=== PATIENT | male | born 1985 | race Caucasian/White ===

== ENCOUNTER 2016-05-27 19:14 | Emergency (ER) | payer OTHER ==
[2016-05-27 19:20] VITALS: RESP 16
[2016-05-27] MEDS ORDERED: RX INFO: IV CONTRAST WAS GIVEN 1 EACH MISC MISCELLANE PRN (19:25)
--- NOTE | 2016-05-27 19:30 | ED ---
General Adult HPI - General Chief complaint: Neuro Symptoms/Deficit Stated complaint: CVA Symptoms Time Seen by Provider: 05/27/16 19:17 Source: patient, EMS, RN notes reviewed Mode of arrival: EMS Limitations: no limitations - History of Present Illness Initial comments: Patient is a pleasant 31-year-old male presenting to the emergency department with weakness. Onset of symptoms was 6:30. Patient was taking out the trash. Patient did fall. Patient denies any injury. Patient was unable to get up because he was weak. Patient did have a stroke around 6 years ago with similar problems. Patient does not have persistent deficits from that. Patient does not feel confused. No visual changes. No speech problems. Patient states his weakness is on the left side. Patient is on Coumadin and last had his level checked a couple weeks ago. Patient believes his levels may be slightly high. Patient does have a history of mitral valve disease and has had 2 surgeries when he was younger. This is why patient is on Coumadin. Patient states he may have a minimal headache however is not concerned regarding a. No neck or back pain. - Related Data Home Medications Medication Instructions Recorded Confirmed Warfarin [Coumadin] 5 mg PO SUTUWETHSA 05/27/16 05/27/16 Warfarin [Coumadin] 7.5 mg PO MOFR 05/27/16 05/27/16 Allergies Allergy/AdvReac Type Severity Reaction Status Date / Time No Known Allergies Allergy Verified 05/27/16 19:57 Review of Systems ROS Statement: Those systems with pertinent positive or pertinent negative responses have been documented in the HPI. ROS Other: All systems not noted in ROS Statement are negative. Constitutional: Denies: fever Eyes: Denies: eye pain ENT: Denies: ear pain Respiratory: Denies: cough, dyspnea Cardiovascular: Denies: chest pain Endocrine: Denies: fatigue Gastrointestinal: Denies: abdominal pain Genitourinary: Denies: dysuria Musculoskeletal: Denies: back pain Skin: Denies: rash Neurological: Reports: weakness, abnormal gait. Denies: headache, numbness, paresthesias, confusion General Exam Limitations: physical limitation General appearance: alert, in no apparent distress Head exam: Present: atraumatic, normocephalic Eye exam: Present: normal appearance, PERRL, EOMI. Absent: nystagmus ENT exam: Present: normal oropharynx Neck exam: Present: normal inspection. Absent: tenderness Respiratory exam: Present: normal lung sounds bilaterally Cardiovascular Exam: Present: regular rate, normal rhythm, systolic murmur GI/Abdominal exam: Present: soft. Absent: tenderness Extremities exam: Present: normal inspection. Absent: pedal edema, calf tenderness Back exam: Present: normal inspection. Absent: tenderness Neurological exam: Present: alert, oriented X3, CN II-XII intact, motor sensory deficit Expanded Patient oriented to: Present: person, place, time Speech: Present: fluid speech Cranial nerves: EOM's Intact: Normal, Facial Sensation: Normal Cerebellar function: Finger to Nose: Abnormal Left Sensory exam: Upper Extremity Light Touch: Normal, Lower Extremity Light Touch: Normal Motor strength exam: RUE: 5, LUE: 2/1 (Unable to lift the left arm off the bed. Some movement is present.), RLE: 5, LLE: 2/1 (Barely able to lift the leg off the bed) Eye Response: (4) open spontaneously Motor Response: (6) obeys commands Verbal Response: (5) oriented Psychiatric exam: Present: normal affect, normal mood Skin exam: Absent: rash Course Vital Signs 05/27/16 05/27/16 05/27/16 19:15 19:18 19:28 Temperature 98.3 F Pulse Rate 76 76 74 Respiratory 16 16 16 Rate Blood Pressure 141/93 141/93 139/95 O2 Sat by Pulse 98 99 99 Oximetry 05/27/16 05/27/16 05/27/16 19:38 19:58 20:08 Temperature 97.9 F Pulse Rate 70 71 67 Respiratory 16 16 16 Rate Blood Pressure 130/78 164/92 148/88 O2 Sat by Pulse 99 99 100 Oximetry - Reevaluation(s) Reevaluation #1: 05/27/16 19:28 Code stroke was called. Unclear patient will be a candidate for TPA secondary to being on Coumadin. 05/27/16 19:46 Case was discussed in detail with neuro interventional list doctor keily who does recommend TPA if INR is less than 1.7. 05/27/16 19:52 Case again discussed with Dr. michaud who does recommend providing TPA. INR is 1.6. Patient was updated regarding risks of bleeding and internal weeding and intercranial breathing as well as risk for worsening symptoms and permanent disability and . 05/27/16 19:56 Patient and family are still deciding whether or not they want TPA. Patient is warned that he is likely at increased risk for bleeding with INR at 1.6 even though this is still something he is able to receive. 05/27/16 20:06 Patient has decided to receive TPA. Pharmacy was notified. dr. michaud did review CTA and would like patient transferred to [facility] for possible thrombectomy. He is discussing this with the patient and family. 05/27/16 20:17 Patient has now refused TPA. Neurologist aware of this. Patient will still be transferred for thrombectomy. Case was discussed in detail with Dr. Cabello, at [facility], who will accept transfer. Patient does have improvement of symptoms. Patient is able to lift his left leg off the bed and hold for 4-5 seconds. Patient is able to lift his left arm up with drift. Patient and family were fully updated on results. 05/27/16 20:18 Medical Decision Making - Lab Data Result diagrams: 05/27/16 19:20 05/27/16 19:20 Lab Results 05/27/16 05/27/16 05/27/16 Range/Units 19:20 19:20 19:20 WBC 5.6 (3.8-10.6) k/uL RBC 5.00 (4.30-5.90) m/uL Hgb 14.4 (13.0-17.5) gm/dL Hct 40.3 (39.0-53.0) % MCV 80.6 (80.0-100.0) fL MCH 28.7 (25.0-35.0) pg MCHC 35.6 (31.0-37.0) g/dL RDW 13.1 (11.5-15.5) % Plt Count 213 (150-450) k/uL Neutrophils % 50 % Lymphocytes % 32 % Monocytes % 11 % Eosinophils % 4 % Basophils % 1 % Neutrophils # 2.8 (1.3-7.7) k/uL Lymphocytes # 1.8 (1.0-4.8) k/uL Monocytes # 0.6 (0-1.0) k/uL Eosinophils # 0.2 (0-0.7) k/uL Basophils # 0.0 (0-0.2) k/uL Hyperchromasia Slight PT (9.0-12.0) sec INR (<1.1) APTT (22.0-30.0) sec Sodium 143 (137-145) mmol/L Potassium 3.8 (3.5-5.1) mmol/L Chloride 103 (98-107) mmol/L Carbon Dioxide 27 (22-30) mmol/L Anion Gap 13 mmol/L BUN 15 (9-20) mg/dL Creatinine 0.93 (0.66-1.25) mg/dL Est GFR (MDRD) Af Amer >60 (>60 ml/min/1.73 sqM) Est GFR (MDRD) Non-Af >60 (>60 ml/min/1.73 sqM) Glucose 90 (74-99) mg/dL POC Glucose (mg/dL) (75-99) mg/dL POC Glu Database Consultant ID Calcium 9.5 (8.4-10.2) mg/dL Total Bilirubin 0.7 (0.2-1.3) mg/dL AST 29 (17-59) U/L ALT 34 (21-72) U/L Alkaline Phosphatase 58 (38-126) U/L Total Creatine Kinase 154 (55-170) U/L CK-MB (CK-2) 0.5 (0.0-2.4) ng/mL CK-MB (CK-2) Rel Index 0.3 Troponin I 0.013 (0.000-0.034) ng/mL Total Protein 7.9 (6.3-8.2) g/dL Albumin 4.7 (3.5-5.0) g/dL 05/27/16 05/27/16 Range/Units 19:20 19:44 WBC (3.8-10.6) k/uL RBC (4.30-5.90) m/uL Hgb (13.0-17.5) gm/dL Hct (39.0-53.0) % MCV (80.0-100.0) fL MCH (25.0-35.0) pg MCHC (31.0-37.0) g/dL RDW (11.5-15.5) % Plt Count (150-450) k/uL Neutrophils % % Lymphocytes % % Monocytes % % Eosinophils % % Basophils % % Neutrophils # (1.3-7.7) k/uL Lymphocytes # (1.0-4.8) k/uL Monocytes # (0-1.0) k/uL Eosinophils # (0-0.7) k/uL Basophils # (0-0.2) k/uL Hyperchromasia PT 15.9 H (9.0-12.0) sec INR 1.6 (<1.1) APTT 24.6 (22.0-30.0) sec Sodium (137-145) mmol/L Potassium (3.5-5.1) mmol/L Chloride (98-107) mmol/L Carbon Dioxide (22-30) mmol/L Anion Gap mmol/L BUN (9-20) mg/dL Creatinine (0.66-1.25) mg/dL Est GFR (MDRD) Af Amer (>60 ml/min/1.73 sqM) Est GFR (MDRD) Non-Af (>60 ml/min/1.73 sqM) Glucose (74-99) mg/dL POC Glucose (mg/dL) 92 (75-99) mg/dL POC Glu Database Consultant ID Calcium (8.4-10.2) mg/dL Total Bilirubin (0.2-1.3) mg/dL AST (17-59) U/L ALT (21-72) U/L Alkaline Phosphatase (38-126) U/L Total Creatine Kinase (55-170) U/L CK-MB (CK-2) (0.0-2.4) ng/mL CK-MB (CK-2) Rel Index Troponin I (0.000-0.034) ng/mL Total Protein (6.3-8.2) g/dL Albumin (3.5-5.0) g/dL - Radiology Data Radiology results: image reviewed (Computed tomography scan of the brain shows no acute abnormality. Evidence of prior infarct) Critical Care Time Critical Care Time: Yes Total Critical Care Time: 41 Disposition Clinical Impression: Cerebrovascular accident Disposition: OTHER INSTITUTION NOT DEFINED Condition: Serious Referrals: None,Stated [Primary Care Provider] - 1-2 days - Out of Hospital Transfer - Req. Specs Out of Hospital Transfer - Requested Specifics: Other Emergency Center
[2016-05-27 19:37] LABS: Basophils % (A) 1 %; CH 29.9; CHCM 37.3; Eosinophils # (A) 0.2 k/uL (0-0.7); Eosinophils % (A) 4 %; HCT 40.3 % (39.0-53.0); HDW 3.21; HGB 14.4 gm/dL (13.0-17.5); Hyperchromasia Slight; Luc # (Auto) 0.15; Luc % (Auto) 3; Lymphocytes # (A) 1.8 k/uL (1.0-4.8); Lymphocytes % (A) 32 %; MCH 28.7 pg (25.0-35.0); MCHC 35.6 g/dL (31.0-37.0); MCV 80.6 fL (80.0-100.0); Mean Platelet Volume 7.3; Monocytes # (A) 0.6 k/uL (0-1.0); Monocytes % (A) 11 %; Neutrophils # (A) 2.8 k/uL (1.3-7.7); Neutrophils % (A) 50 %; RDW 13.1 % (11.5-15.5); WBC 5.6 k/uL (3.8-10.6); WBC (Perox) 5.53
[2016-05-27 19:44] LABS: INR 1.6 (<1.1); Partial Thromboplastin Time 24.6 sec (22.0-30.0); Prothrombin Time 15.9 sec (9.0-12.0)
[2016-05-27 19:45] LABS: ALT 34 U/L (21-72); AST 29 U/L (17-59); Alkaline Phosphatase 58 U/L (38-126); Anion Gap 13 mmol/L; Blood Urea Nitrogen 15 mg/dL (9-20); Calcium 9.5 mg/dL (8.4-10.2); Carbon Dioxide 27 mmol/L (22-30); Chloride 103 mmol/L (98-107); Glucose 90 mg/dL (74-99); Non-African American GFR(MDRD) >60 (>60 ml/min/1.73 sqM); Potassium 3.8 mmol/L (3.5-5.1); Sodium 143 mmol/L (137-145); Total Bilirubin 0.7 mg/dL (0.2-1.3); Total Protein 7.9 g/dL (6.3-8.2)
--- NOTE | 2016-05-27 19:45 | CT ---
EXAMINATION TYPE: CT brain wo con DATE OF EXAM: 05/27/2016 7:39 PM COMPARISON: Prior head CT dated October 2009 HISTORY: Left sided weakness after collapse. History of stroke. CT DLP: 1262.80 mGycm Automated exposure control for dose reduction was used. FINDINGS: Previously identified areas of low density within the babs are again noted. There is no hemorrhage or hydrocephalus. No mass effect. Periventricular white matter demyelination changes are suspected. Hair varium is intact. Inflammatory change present within the maxillary sinus. IMPRESSION: No acute abnormality. Chronic small vessel ischemic changes may be present, evidence of prior infarct ions within the babs, MRI may be of benefit.
[2016-05-27 19:47] LABS: Glucose,Whole Blood 92 mg/dL (75-99)
[2016-05-27] MEDS ORDERED: tPA (Alteplase) PER PHARMACY 1 EACH MISC MISCELLANE PRN ×2 (19:51→19:58)
[2016-05-27] MEDS ORDERED: ALTEPLASE BOLUS IV STA (19:58)
[2016-05-27] MEDS ORDERED: ALTEPLASE IV STA (19:58)
[2016-05-27 20:09] LABS: Creatine Kinase MB 0.5 ng/mL (0.0-2.4); Troponin I 0.013 ng/mL (0.000-0.034)
--- NOTE | 2016-05-27 20:11 | CT ---
CT angiogram of the head and neck HISTORY: Left-sided weakness following collapse Helical acquisition obtained from the thoracic aorta through the brain following dynamic administrati on 65 cc Omni 350 IV. Three-dimensional reconstructions performed on alternate workstation. Exam ashutosh elated to head CT same date The thoracic aorta, superior branch vessels are patent, there is a three-vessel arch. The subclavian arteries, left and right common carotid, innominate arteries are patent. Internal and external caroti d arteries are patent, there is no evident filling defect or dissection. The left vertebral artery is dominant, vertebral arteries are patent. The [place] of [place] is patent. IMPRESSION: Embolism, stenosis is not evident.
[2016-05-27] MEDS ORDERED: SODIUM CHLORIDE 0.9% 1,000 ML IV STA (20:13)
[2016-05-27 20:14] VITALS: TEMP 97.9
[2016-05-27 21:03] VITALS: BP 128/69; PULSE 68
== END 2016-05-27 21:04 | disposition other institution (70) ==
LOC: EC 19:14
DX: I63.9 Cerebral infarction, unspecified (principal); I44.0 Atrioventricular block, first degree; I45.10 Unspecified right bundle-branch block; Z79.01 Long term (current) use of anticoagulants; I05.9 Rheumatic mitral valve disease, unspecified
CPT/HCPCS: 36415; 93005; 80053; 82550; 82553; 84484; 85025; 85610; 85730; 70496; 70450; 70498; 99291; Q9967

== ENCOUNTER 2016-06-03 09:31 | Inpatient (IN) | payer OTHER ==
[2016-06-03] MEDS ORDERED: PIPERACILLIN-TAZOBACTAM 3.375 GM in DEXTROSE/WATER 1 50ML.BAG IVPB STA ×2 (09:58→13:55)
[2016-06-03] MEDS ORDERED: LEVOFLOXACIN 750MG-D5W PMX 750 MG in DEXTROSE/WATER 1 150ML.BAG IVPB STA (09:58)
[2016-06-03] MEDS ORDERED: IV VANCOMYCIN PER PHARMACY 1 EACH MISC MISCELLANE PRN (10:00)
--- NOTE | 2016-06-03 10:09 | XR ---
EXAMINATION TYPE: XR chest 1V portable DATE OF EXAM: 06/03/2016 10:04 AM COMPARISON: None HISTORY: Evidence of breath TECHNIQUE: Single frontal view of the chest is obtained. FINDINGS: Diffuse bilateral airspace disease and cardiomegaly. Postsurgical changes. No pneumothorax or sizable effusion. IMPRESSION: 1. Bilateral airspace disease may be on the basis of pulmonary edema. Diffuse pneumonia not excluded. Correlate clinically.
[2016-06-03] MEDS ORDERED: LORazepam 2 MG/ML SYRINGE IV STA (10:12)
[2016-06-03] MEDS ORDERED: VANCOMYCIN 1,250 MG in SODIUM CHLORIDE 0.9% 250 ML IVPB ONE (10:30)
[2016-06-03 10:31] LABS: ALT 36 U/L (21-72); AST 27 U/L (17-59); Alkaline Phosphatase 67 U/L (38-126); Anion Gap 13 mmol/L; Blood Urea Nitrogen 23 mg/dL (9-20); Calcium 9.6 mg/dL (8.4-10.2); Carbon Dioxide 26 mmol/L (22-30); Chloride 101 mmol/L (98-107); Glucose 112 mg/dL (74-99); Magnesium 1.7 mg/dL (1.6-2.3); Non-African American GFR(MDRD) >60 (>60 ml/min/1.73 sqM); Potassium 4.9 mmol/L (3.5-5.1); Sodium 140 mmol/L (137-145); Total Bilirubin 0.8 mg/dL (0.2-1.3); Total Protein 7.8 g/dL (6.3-8.2)
[2016-06-03] MEDS ORDERED: RX INFO: IV CONTRAST WAS GIVEN 1 EACH MISC MISCELLANE PRN (10:31)
[2016-06-03 10:39] LABS: INR 1.2 (<1.1); Partial Thromboplastin Time 22.2 sec (22.0-30.0); Prothrombin Time 11.6 sec (9.0-12.0)
[2016-06-03 10:40] LABS: Basophils % (A) 0 %; CH 29.9; CHCM 36.2; Eosinophils # (A) 0.1 k/uL (0-0.7); Eosinophils % (A) 0 %; HCT 46.2 % (39.0-53.0); HDW 3.22; HGB 16.1 gm/dL (13.0-17.5); Luc # (Auto) 0.15; Luc % (Auto) 1; Lymphocytes # (A) 0.6 k/uL (1.0-4.8); Lymphocytes % (A) 3 %; MCH 28.9 pg (25.0-35.0); MCHC 34.9 g/dL (31.0-37.0); MCV 82.9 fL (80.0-100.0); Monocytes # (A) 1.1 k/uL (0-1.0); Monocytes % (A) 5 %; Neutrophils # (A) 18.1 k/uL (1.3-7.7); Neutrophils % (A) 91 %; RBC 5.58 m/uL (4.30-5.90); RDW 13.3 % (11.5-15.5); WBC (Perox) 20.48
[2016-06-03 10:50] LABS: Creatine Kinase MB 0.4 ng/mL (0.0-2.4); Troponin I 0.019 ng/mL (0.000-0.034)
[2016-06-03] MEDS ORDERED: ENOXAPARIN 80 MG/0.8 ML SYRINGE SQ STA (11:41)
[2016-06-03] MEDS ORDERED: HEPARIN SODIUM,PORCINE 5,000 UNIT/ML 1 ML VIAL IV PRN (11:46)
[2016-06-03] MEDS ORDERED: HEPARIN SODIUM,PORCINE 10,000 UNIT/ML 1 ML VIAL IV ONE (11:46)
--- NOTE | 2016-06-03 11:48 | CT ---
EXAMINATION TYPE: CT chest angio for PE DATE OF EXAM: 06/03/2016 11:09 AM COMPARISON: NONE HISTORY: Dyspnea. Prior history of thrombectomy CT DLP: 161.30 mGycm Automated exposure control for dose reduction was used. CONTRAST: CT Chest for pulmonary embolism performed with with IV Contrast, patient injected with 100 ml mL of O mnipaque 350. FINDINGS: LUNGS: There is diffuse bilateral airspace disease. Motion artifact limits assessment pulmonary arter ies. Small right-sided pleural effusion seen. No pneumothorax.. MEDIASTINUM: The heart is enlarged and there is postsurgical changes. Assessment of the pulmonary art eries is limited due to artifact and suboptimal opacification. Question of defect within the third or fernanda branch left pulmonary artery axial image [id number] OTHER: Anechoic masses are noted. IMPRESSION: 1. Diffuse bilateral airspace disease. Differential include pneumonia including atypical pneumonia or opportunistic infection. Pulmonary edema not excluded felt less likely. There is a tiny right pleura l effusion. Less likely etiologies include pulmonary hemorrhage. Correlate clinically. 2. Markedly limited assessment of the pulmonary arteries due to extensive artifact. Findings are mandie picious for pulmonary embolism within third order branches left pulmonary artery.
[2016-06-03] MEDS ORDERED: HEPARIN SODIUM,PORCINE/D5W PMX 25,000 UNIT in DEXTROSE/WATER 1 500ML.BAG IV SCH (12:00)
--- NOTE | 2016-06-03 12:08 | ED ---
SOB HPI - General Chief Complaint: Shortness of Breath Stated Complaint: Sob/cough Time Seen by Provider: 06/03/16 09:45 Source: patient, RN notes reviewed Mode of arrival: wheelchair Limitations: no limitations - History of Present Illness Initial Comments: This patient is a 31-year-old man who presents to be evaluated for shortness of breath. He has history of congenital heart defect and has had 3 open heart surgeries, including mitral valve replacement. The patient recently (05/27) was seen here, diagnosed with a stroke, and was transferred to [facility], where he underwent a thrombectomy. The patient states that the symptoms seem to start acutely in the early hours of this morning and worsened. He complains of shortness of breath, nonproductive cough. The patient is denying fever or chills, preceding URI symptoms, chest pain, back pain, leg pain or swelling, change in urination or bowel movements. MD Complaint: shortness of breath, cough -: hour(s) Improves With: nothing Worsens With: lying flat Associated Symptoms: denies other symptoms - Related Data Home Medications Medication Instructions Recorded Confirmed Warfarin [Coumadin] 5 mg PO SUTUWETHSA 05/27/16 06/03/16 Warfarin [Coumadin] 7.5 mg PO MOFR 05/27/16 06/03/16 Atorvastatin [Lipitor] 40 mg PO HS 06/03/16 06/03/16 Lisinopril [Prinivil] 10 mg PO HS 06/03/16 06/03/16 Allergies Allergy/AdvReac Type Severity Reaction Status Date / Time No Known Allergies Allergy Verified 06/03/16 11:59 Review of Systems ROS Statement: Those systems with pertinent positive or pertinent negative responses have been documented in the HPI. ROS Other: All systems not noted in ROS Statement are negative. Constitutional: Denies: fever, chills, weakness ENT: Denies: throat pain, congestion Respiratory: Reports: cough, dyspnea. Denies: wheezes, hemoptysis, stridor Cardiovascular: Reports: orthopnea. Denies: chest pain, palpitations, dyspnea on exertion, edema, syncope Gastrointestinal: Denies: abdominal pain, vomiting, melena, hematochezia Genitourinary: Denies: dysuria, hematuria Musculoskeletal: Denies: back pain Skin: Denies: rash Neurological: Denies: headache Hematological/Lymphatic: Denies: easy bleeding Past Medical History Past Medical History: CVA/TIA, Mitral Valve Prolapse (MVP) History of Any Multi-Drug Resistant Organisms: None Reported Additional Past Surgical History / Comment(s): thrombectomy, heart surgery Past Psychological History: No Psychological Hx Reported Smoking Status: Never smoker Past Alcohol Use History: None Reported Past Drug Use History: None Reported General Exam Limitations: no limitations General appearance: alert, anxious, in distress (Tachypnea) Head exam: Present: atraumatic, normocephalic Eye exam: Present: normal appearance. Absent: scleral icterus, conjunctival injection ENT exam: Present: normal oropharynx, mucous membranes moist Neck exam: Present: normal inspection, full ROM Respiratory exam: Present: respiratory distress, rales (Bilateral), accessory muscle use (Kidney). Absent: wheezes, rhonchi, stridor, decreased breath sounds , prolonged expiratory Cardiovascular Exam: Present: normal rhythm, tachycardia, normal heart sounds, systolic murmur. Absent: diastolic murmur, rubs, gallop GI/Abdominal exam: Present: soft. Absent: distended, tenderness, guarding, rebound, mass Extremities exam: Present: normal inspection, normal capillary refill. Absent: pedal edema, calf tenderness Back exam: Present: normal inspection. Absent: CVA tenderness (R), CVA tenderness (L) Neurological exam: Present: alert Skin exam: Present: warm, dry, intact, pallor. Absent: rash Course Vital Signs 06/03/16 06/03/16 06/03/16 09:40 10:06 10:40 Temperature 99.5 F Pulse Rate 110 H 105 H 108 H Respiratory 20 50 H 54 H Rate Blood Pressure 117/62 120/64 111/76 O2 Sat by Pulse 81 L 94 L 96 Oximetry 06/03/16 06/03/16 06/03/16 11:11 11:21 11:37 Temperature Pulse Rate 104 H 98 Respiratory 52 H 56 H Rate Blood Pressure 111/62 105/59 O2 Sat by Pulse 98 95 98 Oximetry 06/03/16 06/03/16 06/03/16 11:51 12:21 12:51 Temperature Pulse Rate 102 H 100 90 Respiratory 46 H 42 H 36 H Rate Blood Pressure 109/73 91/51 94/52 O2 Sat by Pulse 96 94 L 96 Oximetry 06/03/16 06/03/1606/03/17 13:21 13:51 14:17 Temperature Pulse Rate 91 86 Respiratory 44 H 44 H 56 H Rate Blood Pressure 94/52 98/60 O2 Sat by Pulse 97 86 L Oximetry 06/03/16 06/03/16 14:21 14:50 Temperature 101.5 F H 98.6 F Pulse Rate 86 Respiratory 36 H Rate Blood Pressure 99/57 O2 Sat by Pulse 96 94 L Oximetry - Reevaluation(s) Reevaluation #1: 06/03/16 12:14 Case was discussed with Dr. Chicas who had treated the patient's stroke. Discussed whether there were any contraindications for heparin or other anticoagulants, and they are okay with giving high-dose heparin for the suspected PE. We discussed patient's INR level and he suspects patient will probably benefit from a change to one of the new generation anticoagulants such as eliquis. Reevaluation #2: 06/03/16 13:18 Reviewed the patient's blood gas with Dr. De La Rosa. The SpO2 is low, and I went and discussed with the patient that there was recommendation for intubation, and utilization of PEEP to support his oxygenation. At this point the patient states he does feel better than on arrival, and that he does not want to go onto the ventilator, but states that if he is feeling tired or if there is worsening then he would go on the ventilator. Reevaluation #3: 06/03/16 13:49 Case discussed with cardiology who will see the patient as well. Medical Decision Making - Medical Decision Making This patient is a 31-year-old male with congenital cardiac abnormality, status post multiple surgeries in the last one being mitral valve replacement. He has presented with acute dyspnea. Suspect that there is congestive heart failure with edema, based on patient's history, however given his recent hospitalization will cover the patient for possibility of healthcare associated pneumonia. In addition his Coumadin level is subtherapeutic and with the elevated d-dimer computed tomography scan was obtained that shows possible pulmonary embolus in the left lung and this is treated with heparin. He does not have a saddle embolus.. I have had multiple discussions with the consultants, who are involved in his care. At this point the patient is showing some clinical improvement, and feels that his breathing status is improving. Patient be admitted to the ICU for further evaluation and treatment. - Lab Data Result diagrams: 06/03/16 09:56 06/03/16 09:56 Lab Results 06/03/16 06/03/16 06/03/16 Range/Units 09:56 09:56 09:56 WBC 20.0 H (3.8-10.6) k/uL RBC 5.58 (4.30-5.90) m/uL Hgb 16.1 (13.0-17.5) gm/dL Hct 46.2 (39.0-53.0) % MCV 82.9 (80.0-100.0) fL MCH 28.9 (25.0-35.0) pg MCHC 34.9 (31.0-37.0) g/dL RDW 13.3 (11.5-15.5) % Plt Count 205 (150-450) k/uL Neutrophils % 91 % Lymphocytes % 3 % Monocytes % 5 % Eosinophils % 0 % Basophils % 0 % Neutrophils # 18.1 H (1.3-7.7) k/uL Lymphocytes # 0.6 L (1.0-4.8) k/uL Monocytes # 1.1 H (0-1.0) k/uL Eosinophils # 0.1 (0-0.7) k/uL Basophils # 0.0 (0-0.2) k/uL PT (9.0-12.0) sec INR (<1.1) APTT (22.0-30.0) sec D-Dimer (<0.60) mg/L FEU Sample Site ABG pH (7.35-7.45) ABG pCO2 (35-45) mmHg ABG pO2 (83-108) mmHg ABG HCO3 (21-25) mmol/L ABG Total CO2 (19-24) mmol/L ABG O2 Saturation (94-97) % ABG Base Excess mmol/L FiO2 % Sodium 140 (137-145) mmol/L Potassium 4.9 (3.5-5.1) mmol/L Chloride 101 (98-107) mmol/L Carbon Dioxide 26 (22-30) mmol/L Anion Gap 13 mmol/L BUN 23 H (9-20) mg/dL Creatinine 1.10 (0.66-1.25) mg/dL Est GFR (MDRD) Af Amer >60 (>60 ml/min/1.73 sqM) Est GFR (MDRD) Non-Af >60 (>60 ml/min/1.73 sqM) Glucose 112 H (74-99) mg/dL Plasma Lactic Acid Evan (0.7-2.0) mmol/L Calcium 9.6 (8.4-10.2) mg/dL Magnesium 1.7 (1.6-2.3) mg/dL Total Bilirubin 0.8 (0.2-1.3) mg/dL AST 27 (17-59) U/L ALT 36 (21-72) U/L Alkaline Phosphatase 67 (38-126) U/L Total Creatine Kinase 89 (55-170) U/L CK-MB (CK-2) 0.4 (0.0-2.4) ng/mL CK-MB (CK-2) Rel Index 0.4 Troponin I 0.019 (0.000-0.034) ng/mL NT-Pro-B Natriuret Pep pg/mL Total Protein 7.8 (6.3-8.2) g/dL Albumin 4.5 (3.5-5.0) g/dL 06/03/16 06/03/16 06/03/16 Range/Units 09:56 09:56 09:56 WBC (3.8-10.6) k/uL RBC (4.30-5.90) m/uL Hgb (13.0-17.5) gm/dL Hct (39.0-53.0) % MCV (80.0-100.0) fL MCH (25.0-35.0) pg MCHC (31.0-37.0) g/dL RDW (11.5-15.5) % Plt Count (150-450) k/uL Neutrophils % % Lymphocytes % % Monocytes % % Eosinophils % % Basophils % % Neutrophils # (1.3-7.7) k/uL Lymphocytes # (1.0-4.8) k/uL Monocytes # (0-1.0) k/uL Eosinophils # (0-0.7) k/uL Basophils # (0-0.2) k/uL PT 11.6 (9.0-12.0) sec INR 1.2 (<1.1) APTT 22.2 (22.0-30.0) sec D-Dimer 3.11 H (<0.60) mg/L FEU Sample Site ABG pH (7.35-7.45) ABG pCO2 (35-45) mmHg ABG pO2 (83-108) mmHg ABG HCO3 (21-25) mmol/L ABG Total CO2 (19-24) mmol/L ABG O2 Saturation (94-97) % ABG Base Excess mmol/L FiO2 % Sodium (137-145) mmol/L Potassium (3.5-5.1) mmol/L Chloride (98-107) mmol/L Carbon Dioxide (22-30) mmol/L Anion Gap mmol/L BUN (9-20) mg/dL Creatinine (0.66-1.25) mg/dL Est GFR (MDRD) Af Amer (>60 ml/min/1.73 sqM) Est GFR (MDRD) Non-Af (>60 ml/min/1.73 sqM) Glucose (74-99) mg/dL Plasma Lactic Acid Evan 1.5 (0.7-2.0) mmol/L Calcium (8.4-10.2) mg/dL Magnesium (1.6-2.3) mg/dL Total Bilirubin (0.2-1.3) mg/dL AST (17-59) U/L ALT (21-72) U/L Alkaline Phosphatase (38-126) U/L Total Creatine Kinase (55-170) U/L CK-MB (CK-2) (0.0-2.4) ng/mL CK-MB (CK-2) Rel Index Troponin I (0.000-0.034) ng/mL NT-Pro-B Natriuret Pep 2740 pg/mL Total Protein (6.3-8.2) g/dL Albumin (3.5-5.0) g/dL 06/03/16 Range/Units 12:26 WBC (3.8-10.6) k/uL RBC (4.30-5.90) m/uL Hgb (13.0-17.5) gm/dL Hct (39.0-53.0) % MCV (80.0-100.0) fL MCH (25.0-35.0) pg MCHC (31.0-37.0) g/dL RDW (11.5-15.5) % Plt Count (150-450) k/uL Neutrophils % % Lymphocytes % % Monocytes % % Eosinophils % % Basophils % % Neutrophils # (1.3-7.7) k/uL Lymphocytes # (1.0-4.8) k/uL Monocytes # (0-1.0) k/uL Eosinophils # (0-0.7) k/uL Basophils # (0-0.2) k/uL PT (9.0-12.0) sec INR (<1.1) APTT (22.0-30.0) sec D-Dimer (<0.60) mg/L FEU Sample Site lbrac ABG pH 7.44 (7.35-7.45) ABG pCO2 32 L (35-45) mmHg ABG pO2 72 L (83-108) mmHg ABG HCO3 22 (21-25) mmol/L ABG Total CO2 23 (19-24) mmol/L ABG O2 Saturation 95.0 (94-97) % ABG Base Excess -1.9 mmol/L FiO2 100 % Sodium (137-145) mmol/L Potassium (3.5-5.1) mmol/L Chloride (98-107) mmol/L Carbon Dioxide (22-30) mmol/L Anion Gap mmol/L BUN (9-20) mg/dL Creatinine (0.66-1.25) mg/dL Est GFR (MDRD) Af Amer (>60 ml/min/1.73 sqM) Est GFR (MDRD) Non-Af (>60 ml/min/1.73 sqM) Glucose (74-99) mg/dL Plasma Lactic Acid Evan (0.7-2.0) mmol/L Calcium (8.4-10.2) mg/dL Magnesium (1.6-2.3) mg/dL Total Bilirubin (0.2-1.3) mg/dL AST (17-59) U/L ALT (21-72) U/L Alkaline Phosphatase (38-126) U/L Total Creatine Kinase (55-170) U/L CK-MB (CK-2) (0.0-2.4) ng/mL CK-MB (CK-2) Rel Index Troponin I (0.000-0.034) ng/mL NT-Pro-B Natriuret Pep pg/mL Total Protein (6.3-8.2) g/dL Albumin (3.5-5.0) g/dL - EKG Data -: EKG Interpreted by Me EKG shows normal: sinus rhythm Rate: tachycardia (Rate approximately 103 bpm) Interpretation: other (Incomplete right bundle-branch block. Left anterior fascicular block.) Critical Care Time Critical Care Time: Yes (65 minutes) Disposition Clinical Impression: Congestive heart failure, Pulmonary embolism Narrative: Possible pneumonia Disposition: ADMITTED IP TO THIS HOSP Condition: Critical
[2016-06-03 12:53] LABS: ABG Base Excess -1.9 mmol/L; ABG HCO3 22 mmol/L (21-25); ABG PCO2 32 mmHg (35-45); ABG PH 7.44 (7.35-7.45); ABG PO2 72 mmHg (83-108); ABG TCO2 23 mmol/L (19-24)
[2016-06-03] MEDS ORDERED: NALOXONE 0.4 MG/ML 1 ML VIAL IV PRN (13:01)
[2016-06-03] MEDS ORDERED: SODIUM CHLORIDE 0.9% 1,000 ML IV SCH (13:15)
[2016-06-03] MEDS ORDERED: FUROSEMIDE 10 MG/ML 4 ML VIAL IV STA (13:36)
[2016-06-03] MEDS ORDERED: ACETAMINOPHEN SUPPOSITORY 650 MG SUPP RECTAL PRN (13:52)
[2016-06-03] MEDS ORDERED: ACETAMINOPHEN TAB 325 MG TAB PO PRN (13:52)
[2016-06-03] MEDS ORDERED: MORPHINE SULFATE 4 MG/ML SYRINGE IV PRN (13:52)
[2016-06-03 14:56] LABS: Glucose,Whole Blood 111 mg/dL (75-99)
[2016-06-03 15:23] VITALS: BMI 26.1
[2016-06-03 15:43] VITALS: TEMP 98.6
[2016-06-03 15:45] LABS: Appearance,Urine Clear (Clear); Bilirubin,Urine Negative (Negative); Glucose,Urine (UA) Negative (Negative); Ketones,Urine Negative (Negative); Leukocyte Esterase,Urine Negative (Negative); Nitrite,Urine Negative (Negative); Protein,Urine Negative (Negative); Specific Gravity,Urine 1.009 (1.001-1.035); UA Billing (MACRO vs. MICRO) CHEM; Urobilinogen,Urine <2.0 mg/dL (<2.0)
--- NOTE | 2016-06-03 16:10 | CT ---
EXAMINATION TYPE: CT brain wo con DATE OF EXAM: 06/03/2016 3:56 PM COMPARISON: 05/27/2016 HISTORY: Patient has history of stroke with thrombolectomy 1 week ago. Rule out new stroke. CT DLP: 987.5 mGycm Automated exposure control for dose reduction was used. FINDINGS: There is a 3 x 1.5 cm area of hypodensity involving the anterior right internal capsule. There is no mass effect nor midline shift. There is no evidence of intracranial hemorrhage. Sella turcica appears normal. There is very slight effacement of the frontal horn right lateral ventricle. Calvarium is in tact. There is possible 5 mm area of hypodensity involving the central babs. IMPRESSION: There is evidence of subacute ischemic infarct with minimal swelling involving the anterior right int ernal capsule. This appears new compared to recent CT scan. No hemorrhage. Possible lacunar infarct i n the central babs similar to last CT scan.
[2016-06-03] MEDS ORDERED: WARFARIN 5 MG TAB PO SCH (18:00)
--- NOTE | 2016-06-03 18:15 | P.CRDCN ---
History of Present Illness Consult reason: shortness of breath Chief complaint: PE History of present illness: Dr. Espana , cardiac electrophysiology, dictating on Jimmy Jensen Patient admitted to the ICU from the emergency room 31-year-old male gentleman admitted for shortness of breath Ordered by the ER physician for reading a 2-D echo stat Chest CT showed diffuse bilateral airspace disease and a pulmonary embolus within the third order branch of the left pulmonary artery Patient was coughing and the study was noted to have artifacts Patient's INR is subtherapeutic Recently at [facility] Treated interventionally for CVA CT of the brain shows a subacute ischemic infarct with minimal swelling involving the anterior right internal capsule This is new as compared to our recent computed tomography scan. No hemorrhage Possible lacunar infarct in the central babs similar to last computed tomography scan Patient on IV heparin for treatment of pulmonary embolism Intermittent with the patient he was definite short of breath but not complaining of any chest discomfort and did not have any neurologic signs or symptoms Blood pressure 98/66 and 102/57 mmHg, respiratory rate greater than 30, pulse rate 105 sinus tachycardia Breath sounds are reduced bilaterally with crackles at both sites Loud P2 but this is a thin patient Clear S1 sound White count 20,000, INR 1.2, d-dimer 3.1 on, pO2 72 Normal electrolytes, BUN 23, creatinine 1.1 liver function tests normal Troponin 0.01 Impression Acute pulmonary embolism with bilateral infiltrates in both lung zuluaga with an elevated white count On IV heparin Recent CVA with thrombectomy at [facility] Subacute ischemic infarct with minimal swelling in the anterior right internal capsule without any hemorrhage The patient does need IV anticoagulation I spoke to Dr. De La Rosa, pulmonary medicine Decision regarding transfer to a [facility] would be appropriate because of the need for neurosurgical monitoring while on heparin Given the results of the computed tomography scan of the brain and the chest. Discussed with the family, discussed with the patient, rationale for transfer explained and they're agreeable with the plan Past Medical History Past Medical History: CVA/TIA, Mitral Valve Prolapse (MVP) History of Any Multi-Drug Resistant Organisms: None Reported Additional Past Surgical History / Comment(s): thrombectomy, heart surgery Past Psychological History: No Psychological Hx Reported Smoking Status: Never smoker Past Alcohol Use History: None Reported Past Drug Use History: None Reported Medications and Allergies Home Medications Medication Instructions Recorded Confirmed Type Warfarin [Coumadin] 5 mg PO SUTUWETHSA 05/27/16 06/03/16 History Warfarin [Coumadin] 7.5 mg PO MOFR 05/27/16 06/03/16 History Atorvastatin [Lipitor] 40 mg PO HS 06/03/16 06/03/16 History Lisinopril [Prinivil] 10 mg PO HS 06/03/16 06/03/16 History Allergies Allergy/AdvReac Type Severity Reaction Status Date / Time No Known Allergies Allergy Verified 06/03/16 11:59 Physical Exam Vitals: Vital Signs Temp Pulse Pulse Resp BP Pulse Ox 06/03/16 17:30 89 30 H 87/53 98 06/03/16 17:00 95 31 H 102/57 96 06/03/16 16:30 98 37 H 98/56 92 L 06/03/16 16:00 98/66 06/03/16 15:40 105 H 40 H 98/66 91 L 06/03/16 15:30 103 H 40 H 98/64 88 L 06/03/16 15:20 102 H 44 H 102/57 87 L 06/03/16 15:10 99 54 H 103/56 83 L 06/03/16 15:00 101 H 66 H 111/75 86 L 06/03/16 14:50 98.6 F 94 L 06/03/16 14:40 118 H 06/03/16 14:21 101.5 F H 86 36 H 99/57 96 06/03/16 14:17 56 H 06/03/16 13:51 86 44 H 98/60 86 L 06/03/16 13:21 91 44 H 94/52 97 Intake and Output 06/03/16 06/03/16 06/03/16 06:59 14:59 22:59 Intake Total 88.2 Output Total 1350 Balance -1261.8 Intake: Intake, IV Titration 88.2 Amount Heparin Sodium,Porcine/ 48.2 D5w Pmx 25,000 unit In Dextrose/Water 1 500ml. bag @ 18 UNITS/KG/HR 24. 16 mls/hr IV .[id number] JESUS Rx#:[id number] Sodium Chloride 0.9% 1, 40 000 ml @ 20 mls/hr IV . Q24H JESUS Rx#:[id number] Output: Urine 1350 Other: Weight 78 kg Patient Weight 06/04/16 06:59 Weight 78 kg Results 06/03/16 09:56 06/03/16 09:56 Current Medications Generic Name Dose Route Start Last Admin Trade Name Freq PRN Reason Stop Dose Admin Acetaminophen 650 mg 06/03/16 13:52 Tylenol Suppository RECTAL Q4HR PRN Fever And/ Or Mild Pain Acetaminophen 650 mg 06/03/16 13:52 06/03/16 14:40 Tylenol Tab PO 650 mg Q4HR PRN Administration Fever and/or Mild Pain Atorvastatin Calcium 40 mg 06/03/16 21:00 Lipitor PO HS JESUS Docusate Sodium 100 mg 06/03/16 21:00 Colace PO BID JESUS Famotidine 20 mg 06/03/16 21:00 Pepcid IV Q12HR JESUS Heparin Sodium (Porcine) 0 unit 06/03/16 11:46 Heparin IV PER PROTOCOL PRN Low PTT Protocol Vancomycin HCl 1,250 mg/ 250 mls @ 125 mls/hr 06/03/16 21:00 Sodium Chloride IVPB Q12H JESUS Heparin Sodium/Dextrose 25,000 500 mls @ 24.16 mls/hr 06/03/16 12:00 12:24 unit/ IV Solution IV 18 units/kg/hr .[id number] JESUS 24.16 mls/hr Protocol Administration 18 UNITS/KG/HR Sodium Chloride 1,000 mls @ 20 mls/hr 06/03/16 13:15 06/03/16 14:20 Saline 0.9% IV 20 mls/hr .Q24H JESUS Administration Levofloxacin 750 mg/ IV 150 mls @ 100 mls/hr 06/04/16 09:00 Solution IVPB DAILY JESUS Lisinopril 10 mg 06/03/16 21:00 Zestril PO HS JESUS Miscellaneous Information 1 each 06/03/16 10:31 Rx Info: Iv Contrast Was Given MISCELLANE 06/05/16 10:31 DAILY PRN Per Protocol Morphine Sulfate 4 mg 06/03/16 13:52 06/03/16 14:58 Morphine Sulfate (Inj) IV 4 mg Q2HR PRN Administration Pain Scale 8 to 10 Naloxone HCl 0.2 mg 06/03/16 13:01 Narcan IV Q2M PRN Opioid Reversal Warfarin Sodium 7.5 mg 06/04/16 18:00 Coumadin PO [id number] [facility] Warfarin Sodium 5 mg 06/03/16 18:00 06/03/16 17:48 Coumadin PO 5 mg [id number] [facility] Administration Intake and Output 06/03/16 06/03/16 06/03/16 06:59 14:59 22:59 Intake Total 88.2 Output Total 1350 Balance -1261.8 Intake: Intake, IV Titration 88.2 Amount Heparin Sodium,Porcine/ 48.2 D5w Pmx 25,000 unit In Dextrose/Water 1 500ml. bag @ 18 UNITS/KG/HR 24. 16 mls/hr IV .[id number] [facility] Rx#:[id number] Sodium Chloride 0.9% 1, 40 000 ml @ 20 mls/hr IV . Q24H [facility] Rx#:[id number] Output: Urine 1350 Other: Weight 78 kg Patient Weight 06/04/16 06:59 Weight 78 kg
--- NOTE | 2016-06-03 18:16 | P.DS ---
Providers Date of admission: 06/03/16 13:01 Attending physician: Garrick Campos Primary care physician: Kassidy Sanders [facility] Course: Dr. Espana , cardiac electrophysiology, dictating on Jimmy Jensen, DISCHARGE NOTE /TRANSFER NOTE Patient admitted to the ICU from the emergency room 31-year-old male gentleman admitted for shortness of breath Ordered by the ER physician for reading a 2-D echo stat Chest CT showed diffuse bilateral airspace disease and a pulmonary embolus within the third order branch of the left pulmonary artery Patient was coughing and the study was noted to have artifacts Patient's INR is subtherapeutic Recently at [facility] Treated interventionally for CVA CT of the brain shows a subacute ischemic infarct with minimal swelling involving the anterior right internal capsule This is new as compared to our recent computed tomography scan. No hemorrhage Possible lacunar infarct in the central babs similar to last computed tomography scan Patient on IV heparin for treatment of pulmonary embolism Intermittent with the patient he was definite short of breath but not complaining of any chest discomfort and did not have any neurologic signs or symptoms Blood pressure 98/66 and 102/57 mmHg, respiratory rate greater than 30, pulse rate 105 sinus tachycardia Breath sounds are reduced bilaterally with crackles at both sites Loud P2 but this is a thin patient Clear S1 sound White count 20,000, INR 1.2, d-dimer 3.1 on, pO2 72 Normal electrolytes, BUN 23, creatinine 1.1 liver function tests normal Troponin 0.01 Impression Acute pulmonary embolism with bilateral infiltrates in both lung zuluaga with an elevated white count On IV heparin Recent CVA with thrombectomy at [facility] Subacute ischemic infarct with minimal swelling in the anterior right internal capsule without any hemorrhage The patient does need IV anticoagulation I spoke to Dr. De La Rosa, pulmonary medicine Decision regarding transfer to a [facility] would be appropriate because of the need for neurosurgical monitoring while on heparin Given the results of the computed tomography scan of the brain and the chest. Discussed with the family, discussed with the patient, rationale for transfer explained and they're agreeable with the plan DISCHARGE NOTE Patient Condition at Discharge: Critical Plan - Discharge Summary Discharge Medication List Warfarin [Coumadin] 5 mg PO SUTUWETHSA 05/27/16 [History] Warfarin [Coumadin] 7.5 mg PO MOFR 05/27/16 [History] Atorvastatin [Lipitor] 40 mg PO HS 06/03/16 [History] Lisinopril [Prinivil] 10 mg PO HS 06/03/16 [History] Follow up Appointment(s)/Referral(s): Kassidy Sanders DO [Primary Care Provider] - 1-2 days
--- NOTE | 2016-06-03 18:34 | ECHOF ---
Referral Reason:CHF MEASUREMENTS -------- HEIGHT: 172.7 cm WEIGHT: 67.1 kg BP: IVSd: 0.8 cm (0.6 - 1.1) LVIDd: 3.3 cm (3.9 - 5.3) LVPWd: 1.2 cm (0.6 - 1.1) IVSs: 1.2 cm LVIDs: 2.6 cm LVPWs: 1.2 cm LA Diam: 3.7 cm (2.7 - 3.8) Ao Diam: 2.6 cm (2.0 - 3.7) LA Diam: 3.7 cm (2.7 - 3.8) MV E Ilya: 2.36 m/s MV DecT: 380 ms MV A Ilya: 2.78 m/s MV E/A Ratio: 0.85 RAP: 5.00 mmHg RVSP: 16.65 mmHg FINDINGS -------- Sinus rhythm. This was a technically adequate study. Left ventricular wall thickness is normal. Overall left ventricular systolic function is mild-moderately impaired with, an EF between 40 - 45 %. Inferior Hypokinesis The right ventricle is normal in size. The left atrial size is normal. The right atrial size is normal. There is mild aortic valve sclerosis. There is no evidence of aortic regurgitation. The peak and mean MV gradients are 26.48mmHg 18.34mmHg as measured by doppler. 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 Mechanical [place] MV. Mild tricuspid regurgitation present. There is no evidence of pulmonary hypertension. The right ventricular systolic pressure, as measured by Doppler, is 16.65mmHg. Trace/mild (physiologic) pulmonic regurgitation. The aortic root size is normal. There is no pericardial effusion. CONCLUSIONS -------- 1. Left ventricular wall thickness is normal. 2. The right ventricular systolic pressure, as measured by Doppler, is 16.65mmHg. 3. Overall left ventricular systolic function is mild-moderately impaired with, an EF between 40 - 45 %. 4. Inferior Hypokinesis 5. There is mild aortic valve sclerosis. 6. The peak and mean MV gradients are 26.48mmHg 18.34mmHg as measured by doppler. 7. 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 8. Mechanical [place] MV. 9. Mild tricuspid regurgitation present. 10. There is no evidence of pulmonary hypertension. [employer] [place]: Tanya Esteban RDCS
[2016-06-03 18:52] VITALS: BP 98/61; PULSE 90; RESP 35
[2016-06-03] MEDS ORDERED: FAMOTIDINE 20 MG/2 ML VIAL IV SCH (21:00)
[2016-06-03] MEDS ORDERED: ATORVASTATIN 40 MG TAB PO SCH (21:00)
[2016-06-03] MEDS ORDERED: LISINOPRIL 10 MG TAB PO SCH (21:00)
[2016-06-03] MEDS ORDERED: VANCOMYCIN 1,250 MG in SODIUM CHLORIDE 0.9% 250 ML IVPB SCH (21:00)
[2016-06-03] MEDS ORDERED: DOCUSATE 100 MG CAP PO SCH (21:00)
[2016-06-04] MEDS ORDERED: LEVOFLOXACIN 750MG-D5W PMX 750 MG in DEXTROSE/WATER 1 150ML.BAG IVPB SCH (09:00)
[2016-06-04] MEDS ORDERED: WARFARIN 7.5 MG TAB PO SCH (18:00)
== END 2016-06-03 18:54 | disposition short-term general hospital (02) | DRG 175 ==
LOC: EC 09:31 → 6ICU 13:01
PROVIDERS: ADMIT Internal Medicine; ATTEND Internal Medicine
DX: I26.99 Other pulmonary embolism without acute cor pulmonale (principal); I63.9 Cerebral infarction, unspecified; G93.6 Cerebral edema; I45.2 Bifascicular block; R00.0 Tachycardia, unspecified; R05 Cough; D72.829 Elevated white blood cell count, unspecified; R79.1 Abnormal coagulation profile; I34.1 Nonrheumatic mitral (valve) prolapse; Z79.01 Long term (current) use of anticoagulants; Z79.899 Other long term (current) drug therapy; Z87.74 Personal history of (corrected) congenital malformations of heart and circulatory system; Z95.2 Presence of prosthetic heart valve; Z86.73 Personal history of transient ischemic attack (TIA), and cerebral infarction without residual deficits; Z98.890 Other specified postprocedural states
CPT/HCPCS: 36415; 36600; 70450; 71010; 71275; 80053; 81003; 82550; 82553; 82805; 83605; 83735; 83880; 84484; 85025; 85379; 85610; 85730; 87040; 93005; 93306; 94660; 96365; 96366; 96367; 96368; 96375; 96376; 99291

== ENCOUNTER → 2017-05-10 | Outpatient (CLI) | payer BC ==
[2017-05-10 17:50] LABS: D-Dimer 0.19 mg/L FEU (<0.60); INR 3.5 (<1.2); Prothrombin Time 31.1 sec (9.0-12.0)
[2017-05-11 01:31] LABS: Cardiolipin Ab IgG Interp NEGATIVE (NEGATIVE); Cardiolipin Ab IgM Interp NEGATIVE (NEGATIVE); Cardiolipin IgM Antibody 0.5 U/mL
[2017-05-13 11:39] LABS: Anti-Thrombin III Antigen 111 % (80 - 120); Protein S Antigen 46 % (50 - 140)
[2017-05-13 13:13] LABS: APTT 49 Sec(s) (<43); APTT 1:1 Mix 36 Sec(s) (<43); DRVVT 1:1 Mix 40 Sec(s) (<44); Dilute Russell Viper Venom 65 Sec(s) (<44)
[2017-05-14 11:12] LABS: Protein C Antigen 44 % (72-160)
[2017-05-14 11:44] LABS: Anti-Thrombin III Activity 127 % (79-109)
[2017-05-14 14:12] LABS: Protein C (Activity) <10 % (71-138)
== END | disposition home or self-care (01) ==
LOC: LABWHC1 16:58
PROVIDERS: ATTEND Psychiatry & Neurology Pain Medicine
DX: I63.9 Cerebral infarction, unspecified (principal)
CPT/HCPCS: 36415; 81240; 81241; 81291; 83090; 85300; 85301; 85302; 85303; 85305; 85306; 85379; 85384; 85610; 85613; 85670; 85730; 85732; 86147

== ENCOUNTER → 2017-08-17 | Outpatient (CLI) | payer SELFPAY ==
[2017-08-17 11:56] LABS: INR 4.1 (<1.2); Prothrombin Time 36.6 sec (9.0-12.0)
== END | disposition home or self-care (01) ==
LOC: LABWHC1 09:26
PROVIDERS: ATTEND Internal Medicine Cardiovascular Disease
DX: I34.2 Nonrheumatic mitral (valve) stenosis (principal)
CPT/HCPCS: 36415; 85610

== ENCOUNTER → 2018-07-23 | Outpatient (CLI) | payer BC ==
[2018-07-23 16:24] LABS: ALT 27 U/L (10-49); AST 31 U/L (14-35); Cholesterol 102 mg/dL (0-200); Creatine Kinase 214 U/L (35-257); Triglycerides <50.0 mg/dL (0.0-149.0); VLDL Calculation 9.98 mg/dL (5.00-40.00)
== END | disposition home or self-care (01) ==
LOC: LABWHC1 08:29
PROVIDERS: ATTEND Internal Medicine Cardiovascular Disease
DX: E78.2 Mixed hyperlipidemia (principal)
CPT/HCPCS: 36415; 80061; 82550; 84450; 84460

== ENCOUNTER → 2018-08-09 | Outpatient (CLI) | payer BC ==
[2018-08-09 16:58] LABS: Cholesterol 96 mg/dL (0-200); Triglycerides <50.0 mg/dL (0.0-149.0); VLDL Calculation 9.98 mg/dL (5.00-40.00)
== END ==
LOC: LABWHC1 08:44
PROVIDERS: ATTEND Psychiatry & Neurology Pain Medicine
DX: G45.9 Transient cerebral ischemic attack, unspecified (principal)
CPT/HCPCS: 36415; 80061

== ENCOUNTER → 2019-03-30 | Outpatient (CLI) | payer BC ==
--- NOTE | 2019-03-30 08:16 | CT ---
EXAMINATION TYPE: CT angio head DATE OF EXAM: 03/30/2019 COMPARISON: October 26, 2016 HISTORY: Cerebral infaction due to emboli CT DLP: 1403.8 mGycm CONTRAST: CTA [place] with 3-D reconstruction is performed and without and with IV Contrast, patient i njected with 100 mL of Isovue 370. Contrast CTA of the [place] was performed 3-D reconstruction imaging obtained at a separate workstation. Vertebrobasilar system their major tributaries are patent. There is vascular stenosis n oted to involve the left middle cerebral artery with decreased peripheral flow. Right middle cerebral artery is patent. I do not see evidence for sizable aneurysm or vascular malformation. Please note MRI provides greater sensitivity and specificity. Visualized brain appears grossly unremarkable. IMPRESSION: There is vascular stenosis noted to involve the left middle cerebral artery with decrease d peripheral flow.
== END | disposition home or self-care (01) ==
LOC: RADCTMAIN 06:44
PROVIDERS: ATTEND Psychiatry & Neurology Neurology
DX: I66.02 Occlusion and stenosis of left middle cerebral artery (principal)
CPT/HCPCS: 70496; Q9967

== ENCOUNTER → 2019-05-30 | Outpatient (CLI) | payer BC ==
[2019-05-30 10:41] LABS: Partial Thromboplastin Time 35.8 sec (22.0-30.0)
[2019-05-30 10:58] LABS: HCT 42.8 % (39.0-53.0); HGB 14.8 gm/dL (13.0-17.5); MCHC 34.5 g/dL (31.0-37.0); MCV 84.3 fL (80.0-100.0); Mean Platelet Volume 7.6; Platelet Count 192 k/uL (150-450); RBC 5.08 m/uL (4.30-5.90); RDW 13.1 % (11.5-15.5); WBC 4.2 k/uL (3.8-10.6)
[2019-05-30 17:29] LABS: African American GFR (CKD) 101.7 (60.0-200.0); Albumin 4.7 g/dL (3.80-4.90); Albumin/Globulin Ratio 2.35 (1.60-3.17); Anion Gap 6.2 mmol/L (4.00-12.00); BUN/Creat Ratio 13.64 Ratio (12.00-20.00); Calcium 9.8 mg/dL (8.7-10.3); Carbon Dioxide 28.8 mmol/L (21.6-31.8); Non-African American GFR(CKD) 87.7 (60.0-200.0); Total Bilirubin 0.5 mg/dL (0.2-1.2); Total Protein 6.7 g/dL (6.2-8.2)
== END | disposition home or self-care (01) ==
LOC: LABWHC1 10:00
PROVIDERS: ATTEND Student in an Organized Health Care Education/Training Program
DX: R06.02 Shortness of breath (principal)
CPT/HCPCS: 36415; 80053; 83880; 85027; 85610; 85730